=== PATIENT | male | born 1950 | race Caucasian/White ===

== ENCOUNTER → 2016-10-21 | Outpatient (REF) | payer MEDICARE ==
[2016-10-21 12:49] LABS: ANION GAP 9 MEQ/L (8-16); BLOOD UREA NITROGEN 17 MG/DL (7-18); CALCIUM LEVEL 9.4 MG/DL (8.8-10.2); CARBON DIOXIDE LEVEL 31 MEQ/L (21-32); CHLORIDE LEVEL 96 MEQ/L (98-107); CREATININE FOR GFR 0.99 MG/DL (0.70-1.30); GLOMERULAR FILTRATION RATE > 60.0 (>49); GLUCOSE, FASTING 240 MG/DL (80-110); POTASSIUM SERUM 3.7 MEQ/L (3.5-5.1); SODIUM LEVEL 136 MEQ/L (136-145)
== END ==
LOC: M SFHCPLAZ 08:24
PROVIDERS: ATTEND Internal Medicine
DX: E11.3293 Type 2 diabetes mellitus with mild nonproliferative diabetic retinopathy without macular edema, bilateral (principal); I10 Essential (primary) hypertension

== ENCOUNTER → 2017-01-09 | Outpatient (REF) | payer MEDICARE ==
[2017-01-09 12:09] LABS: ALBUMIN/GLOBULIN RATIO 1.18 (1.00-1.93); ALKALINE PHOSPHATASE 82 U/L (45-117); ALT/SGPT 31 U/L (12-78); ANION GAP 7 MEQ/L (8-16); AST/SGOT 12 U/L (15-37); BILIRUBIN,TOTAL 0.5 MG/DL (0.2-1.0); BLOOD UREA NITROGEN 18 MG/DL (7-18); CALCIUM LEVEL 9.5 MG/DL (8.8-10.2); CARBON DIOXIDE LEVEL 28 MEQ/L (21-32); CHLORIDE LEVEL 101 MEQ/L (98-107); CHOLESTEROL LEVEL 164 MG/DL (<200); CREATININE FOR GFR 1.08 MG/DL (0.70-1.30); GLOMERULAR FILTRATION RATE > 60.0 (>49); GLUCOSE, FASTING 164 MG/DL (80-110); MAGNESIUM LEVEL 1.9 MG/DL (1.8-2.4); POTASSIUM SERUM 3.8 MEQ/L (3.5-5.1); SODIUM LEVEL 136 MEQ/L (136-145); TOTAL PROTEIN 7.4 GM/DL (6.4-8.2); TRIGLYCERIDES LEVEL 75 MG/DL (<150)
== END ==
LOC: M SFHCPLAZ 08:04
PROVIDERS: ATTEND Internal Medicine
DX: I10 Essential (primary) hypertension (principal); Z79.899 Other long term (current) drug therapy

== ENCOUNTER → 2017-01-19 | Outpatient (CLI) | payer MEDICARE ==
--- NOTE | 2017-01-19 12:18 | REP ---
REASON FOR EXAM: History of MS. Comparison exam 12/13/2015. Gadolinium utilized: 22.6 mL of ProHance. The craniovertebral junction is within normal limits and unchanged. The subtle focal area of T2 hypersignal seen in the right half of the cervical cord at the C6 level seen on the prior exam is barely perceptible today and no new areas of T2 hypersignal have developed. There is barely perceptible possible Gadolinium enhancement seen in the cervical cord at the C6 level. Disc space height and degree of hydrational signal is again seen to be decreased throughout status quo. The facet joints are well aligned bilaterally and unchanged. The marrow signal is unchanged remaining within normal limits. At the C2-3 level, there is no significant change. There is no disc herniation, foraminal narrowing, or central canal stenosis. At the C3-4 level, there is a broad based annular bulge seen in conjunction with a posterior spondylotic bar. Degenerative facet and uncovertebral joint changes are again seen to be present at this level bilaterally and the factors in concert are causing unchanged mild left foraminal stenosis and unchanged mild to moderate right foraminal stenosis along with unchanged central canal stenosis. There is no evidence of an acute disc extrusion. At the C4-5 level, note is again made of a broad based annular bulge and a slight posterior spondylotic bar seen in conjunction with degenerative facet and uncovertebral joint changes bilaterally. These factors in concert are causing mild left foraminal stenosis status quo. There is no evidence of right foraminal stenosis. There is moderate unchanged central canal stenosis. There is no evidence of an acute disc extrusion. At the C5-6 level, there is a large broad based annular bulge seen in conjunction with an unchanged central disc protrusion which causes a concava anterior deformity of the anterior surface of the spinal cord. This is seen in conjunction with degenerative facet and uncovertebral joint changes bilaterally and a posterior spondylotic bar. The factors in concert are causing moderate right foraminal stenosis and mild left foraminal stenosis unchanged with severe central canal stenosis status quo. There is no evidence of an acute disc extrusion. At the C6-7 level, there is an asymmetric broad based annular bulge again seen in conjunction with degenerative facet and uncovertebral joint changes bilaterally. There is mild to moderate bilateral foraminal narrowing, right greater than left, and there is unchanged moderate to severe central canal stenosis due to the afore mentioned discogenic and chronic degenerative changes. There is no evidence of an acute disc extrusion. At the C7-T1 level, there is no change. There is an asymmetric broad based annular bulge seen in conjunction with degenerative facet and uncovertebral joint changes bilaterally. These factors in concert are seen along with right paracentral disc protrusion status quo which causes mild impingement upon the right half of the ventral subarachnoid space and mild unchanged central canal stenosis. There is no evidence of acute disc extrusion. IMPRESSION: 1. There is barely perceptible T2 hypersignal and enhancement seen in the cervical cord at the C6 level which I suspect has improved based on the T2 findings compared to the prior exam. No new areas of cord T2 hypersignal have developed. 2. Multilevel discogenic changes seen along with degenerative facet and uncovertebral joint changes giving rise to multilevel central canal stenosis and foraminal narrowing as described above. Signed by El Walton DO 01/19/2017 12:59 P
--- NOTE | 2017-01-19 12:28 | REP ---
REASON: Followup MS. COMPARISON: 12/13/2015. GADOLINIUM UTILIZED: 22 mL of ProHance. Once again, there are areas of scattered periventricular deep white matter FLAIR signal hyperintensity in a fashion unchanged from the prior exam. Scattered deep white matter subcortical T2 and particularly FLAIR hypersignal foci are again seen and in a fashion completely unchanged from the prior exam. No new abnormal deep white matter T2 or FLAIR signal hyperintensities have developed. No areas of abnormal enhancement have developed. There is no change in the appearance of the pericallosal deep white matter. There are no acute extra-axial fluid collections. There are no space occupying lesions. There is no change in the appearance of the posterior fossa. The orbital and petrous structures, cerebellopontine angles, and mastoid air cells are clear and unchanged. Note is again made of maxillary sinus and ethmoid bulla slight mucosal thickening without air fluid levels status quo. Sphenoid sinus mucosal thickening is again seen but this has improved from the prior exam. IMPRESSION: 1. Findings involving the deep white matter, as described above, appears stable and consistent with the patient's diagnosis of multiple sclerosis. 2. Paranasal sinus mucosal thickening as described above. Signed by El Walton DO 01/19/2017 12:59 P
== END ==
LOC: M RAD 09:24
PROVIDERS: ATTEND Psychiatry & Neurology Neurology
DX: G35 Multiple sclerosis (principal)
CPT/HCPCS: 70553; 72156; A9576

== ENCOUNTER → 2017-07-07 | Outpatient (REF) | payer MEDICARE ==
[2017-07-07 12:23] LABS: MEAN CORPUSCULAR HEMOGLOBIN 29.4 pg (27.0-33.0); MEAN CORPUSCULAR HGB CONC 34.7 g/dl (32.0-36.5); MEAN CORPUSCULAR VOLUME 84.7 fl (80.0-96.0); PLATELET COUNT, AUTOMATED 336 10^3/uL (150-450); WHITE BLOOD COUNT 10.1 10^3/uL (4.0-10.0)
[2017-07-07 12:50] LABS: MAGNESIUM LEVEL 2.1 MG/DL (1.8-2.4)
== END ==
LOC: M SFHCPLAZ 08:29
PROVIDERS: ATTEND Internal Medicine
DX: G35 Multiple sclerosis (principal); E11.3293 Type 2 diabetes mellitus with mild nonproliferative diabetic retinopathy without macular edema, bilateral; I10 Essential (primary) hypertension

== ENCOUNTER → 2017-12-10 | Outpatient (REF) | payer MEDICARE ==
[2017-12-10 12:22] LABS: ALBUMIN 4.1 GM/DL (3.2-5.2); ALBUMIN/GLOBULIN RATIO 1.24 (1.00-1.93); ALKALINE PHOSPHATASE 72 U/L (45-117); ALT/SGPT 45 U/L (12-78); ANION GAP 7 MEQ/L (8-16); AST/SGOT 25 U/L (7-37); BILIRUBIN,TOTAL 0.8 MG/DL (0.2-1.0); BLOOD UREA NITROGEN 14 MG/DL (7-18); CALCIUM LEVEL 9.4 MG/DL (8.8-10.2); CARBON DIOXIDE LEVEL 32 MEQ/L (21-32); CHLORIDE LEVEL 101 MEQ/L (98-107); CREATININE FOR GFR 1.08 MG/DL (0.70-1.30); GLOMERULAR FILTRATION RATE > 60.0 (>49); GLUCOSE, FASTING 192 MG/DL (70-100); POTASSIUM SERUM 4.1 MEQ/L (3.5-5.1); SODIUM LEVEL 140 MEQ/L (136-145); TOTAL PROTEIN 7.4 GM/DL (6.4-8.2)
[2017-12-10 12:51] LABS: ESTIMATED AVERAGE GLUCOSE 186 MG/DL (60-110); HEMOGLOBIN A1c 8.1 %
== END ==
LOC: M SFHCPLAZ 08:04
DX: I10 Essential (primary) hypertension (principal); E11.3293 Type 2 diabetes mellitus with mild nonproliferative diabetic retinopathy without macular edema, bilateral
CPT/HCPCS: 83735

== ENCOUNTER 2018-02-03 17:23 | Emergency (ER) | payer OTHER, MEDICARE ==
[2018-02-03] MEDS: NS 1,000 ML IV (19:09)
[2018-02-03] MEDS: MORPHINE 4 MG/ML 1ML VIAL/SYRINGE (J2270) IV (19:10)
[2018-02-03] MEDS: ONDANSETRON 4MG/2ML VIAL (J2405) IV (19:10)
[2018-02-03 19:27] LABS: HEMATOCRIT 36.6 % (42.0-52.0); HEMOGLOBIN 13.1 g/dl (13.5-17.5); MEAN CORPUSCULAR HEMOGLOBIN 30.6 pg (27.0-33.0); MEAN CORPUSCULAR HGB CONC 35.8 g/dl (32.0-36.5); MEAN CORPUSCULAR VOLUME 85.5 fl (80.0-96.0); PLATELET COUNT, AUTOMATED 287 10^3/uL (150-450); RED BLOOD COUNT 4.28 10^6/uL (4.30-6.10); RED CELL DISTRIBUTION WIDTH 12.7 % (11.5-14.5); WHITE BLOOD COUNT 26.7 10^3/uL (4.0-10.0)
[2018-02-03 19:37] LABS: INR 1.04; PROTHROMBIN TIME 13.7 SECONDS (12.1-14.4)
[2018-02-03 19:48] LABS: ANION GAP 10 MEQ/L (8-16); BLOOD UREA NITROGEN 17 MG/DL (7-18); CALCIUM LEVEL 9.3 MG/DL (8.8-10.2); CARBON DIOXIDE LEVEL 26 MEQ/L (21-32); CHLORIDE LEVEL 104 MEQ/L (98-107); CREATININE FOR GFR 1.22 MG/DL (0.70-1.30); GLOMERULAR FILTRATION RATE > 60.0 (>49); GLUCOSE, FASTING 252 MG/DL (70-100); POTASSIUM SERUM 3.6 MEQ/L (3.5-5.1); SODIUM LEVEL 140 MEQ/L (136-145)
[2018-02-03] MEDS ORDERED: ISOVUE-370 76% 100ML VIAL (Q9967) As Ordered (20:03)
[2018-02-03] MEDS: OXYCODONE/APAP 5MG/325MG(BULK FOR ED) 1 TABLET PO (21:09)
== END 2018-02-03 21:17 | disposition home or self-care (01) ==
LOC: M ED 17:23
DX: S22.32XA Fracture of one rib, left side, initial encounter for closed fracture (principal); T14.8XXA Other injury of unspecified body region, initial encounter; V49.49XA Driver injured in collision with other motor vehicles in traffic accident, initial encounter; Y92.410 Unspecified street and highway as the place of occurrence of the external cause; G35 Multiple sclerosis; Z88.0 Allergy status to penicillin
CPT/HCPCS: J2270

== ENCOUNTER → 2018-06-02 | Outpatient (REF) | payer MEDICARE ==
[2018-06-02 12:07] LABS: ALBUMIN 3.8 GM/DL (3.2-5.2); ALBUMIN/GLOBULIN RATIO 1.09 (1.00-1.93); ALKALINE PHOSPHATASE 84 U/L (45-117); ALT/SGPT 36 U/L (12-78); ANION GAP 10 MEQ/L (8-16); AST/SGOT 17 U/L (7-37); BILIRUBIN,TOTAL 0.5 MG/DL (0.2-1.0); BLOOD UREA NITROGEN 18 MG/DL (7-18); CALCIUM LEVEL 9.3 MG/DL (8.8-10.2); CARBON DIOXIDE LEVEL 28 MEQ/L (21-32); CHLORIDE LEVEL 101 MEQ/L (98-107); CHOLESTEROL LEVEL 165 MG/DL (<200); CHOLESTEROL RISK RATIO 2.323 (<5); CREATININE FOR GFR 1.14 MG/DL (0.70-1.30); GLOMERULAR FILTRATION RATE > 60.0 (>49); GLUCOSE, FASTING 167 MG/DL (70-100); HDL CHOLESTEROL 71 MG/DL (>40); LDL CHOLESTEROL 73 MG/DL (<100); MAGNESIUM LEVEL 1.7 MG/DL (1.8-2.4); NON-HDL-C 94 MG/DL; POTASSIUM SERUM 3.8 MEQ/L (3.5-5.1); PSA SCREENING 1.28 NG/ML (< 4.0); SODIUM LEVEL 139 MEQ/L (136-145); TOTAL 25(OH) VITAMIN D 56.4 NG/ML (30.0-100.0); TOTAL PROTEIN 7.3 GM/DL (6.4-8.2); TRIGLYCERIDES LEVEL 103 MG/DL (<150)
[2018-06-02 12:41] LABS: MAU/CREAT RATIO 33.5 MCG/MG (0.0-30.0)
[2018-06-02 13:07] LABS: ESTIMATED AVERAGE GLUCOSE 166 MG/DL (60-110); HEMOGLOBIN A1c 7.4 %
== END ==
LOC: M SFHCPLAZ 08:03
DX: E11.3293 Type 2 diabetes mellitus with mild nonproliferative diabetic retinopathy without macular edema, bilateral (principal); I10 Essential (primary) hypertension; R39.11 Hesitancy of micturition; G35 Multiple sclerosis
CPT/HCPCS: 83735

== ENCOUNTER → 2018-08-04 | Outpatient (REF) | payer MEDICARE ==
[~2018-08-04] MED LIST: PERC5TAB12 PO
[2018-08-04 15:53] LABS: BLOOD UREA NITROGEN 17 MG/DL (7-18); CALCIUM LEVEL 9.5 MG/DL (8.8-10.2); CARBON DIOXIDE LEVEL 27 MEQ/L (21-32); CHLORIDE LEVEL 98 MEQ/L (98-107); CREATININE FOR GFR 1.15 MG/DL (0.70-1.30); GLOMERULAR FILTRATION RATE > 60.0 (>49); GLUCOSE, FASTING 145 MG/DL (70-100); POTASSIUM SERUM 4.1 MEQ/L (3.5-5.1); SODIUM LEVEL 134 MEQ/L (136-145)
== END ==
LOC: M LABDRAWP 13:50
PROVIDERS: ATTEND Psychiatry & Neurology Neurology
DX: G35 Multiple sclerosis (principal)

== ENCOUNTER → 2018-08-10 | Outpatient (CLI) | payer MEDICARE ==
[~2018-08-10] MED LIST changes: +PROHANCE 279.3MG/ML 15ML VIAL (A9576) As Ordered ONE; +PROHANCE 279.3MG/ML 5ML VIAL (A9576) As Ordered ONE
--- NOTE | 2018-08-10 12:50 | REP ---
MR CERVICAL SPINE WITHOUT AND WITH CONTRAST: HISTORY: Multiple sclerosis. CONTRAST: ProHance 20 mL. COMPARISON: 01/19/2017. A disc bulge and small central disc protrusion with associated osteophyte formation are present at the C3-4 level. There is minimal spinal cord compression. Bilateral uncinate process hypertrophy is present. This produces moderate narrowing of the C3 neural foramina. A disc bugle with associated osteophyte formation is present at the C4-5 level. There is mild effacement of the thecal sac without spinal cord compression. Uncinate process hypertrophy is present on the left. This produces mild narrowing of the left C4 neural foramen. The right C4 neural foramen is patent. A disc bulge and small central disc protrusion with associated osteophyte formation are present at the C5-6 level. There is minimal spinal cord compression. Bilateral uncinate process hypertrophy is present. This produces moderate and mild narrowing of the right and left C5 neural foramina respectively. A disc bulge with associated osteophyte formation is present at the C6-7 level. There is moderate effacement of the thecal sac without spinal cord compression. Bilateral uncinate process hypertrophy is present. This produces moderate narrowing of the C6 neural foramina. There is no other disc bulge or herniation. The remaining neural foramina are patent. Two small focal areas of increased signal intensity on T2-weighted images are present in the spinal cord at the C6 and C7-T1 levels. The spinal cord is normal in size. There is no enhancement with contrast. The C5-6 and C6-7 intervertebral discs are decreased in height consistent with disc degeneration. Normal signal intensity is present in the cervical vertebral bodies. IMPRESSION: 1. There is cervical spondylosis at the C3-4 through C6-7 levels most significant at the C3-4 and C5-6 levels where there is minimal spinal cord compression. 2. There are two small focal areas of abnormal signal intensity in the spinal cord at the C6 and C7-T1 levels unchanged compared to the previous study. This is consistent with demyelinating disease. Electronically Signed by David Lewis MD 08/10/2018 12:56 P
--- NOTE | 2018-08-10 14:55 | REP ---
MR BRAIN WITHOUT AND WITH CONTRAST: HISTORY: Multiple sclerosis. CONTRAST: ProHance 20 mL. COMPARISON: 01/19/2017 Scattered punctate areas of increased signal intensity on T2-weighted images are present in the periventricular and subcortical white matter. An additional area of increased signal intensity is present in the splenium of the corpus callosum. These are unchanged compared to the previous study. There are no new areas of abnormal signal intensity. There is no intraparenchymal hemorrhage, infarct, mass or midline shift. There is no abnormal enhancement. The ventricular system and cortical sulci are dilated consistent with mild volume loss. There is no extracerebral collection. Mucosal thickening is present in the ethmoid, maxillary and sphenoid sinuses. IMPRESSION: There are scattered punctate areas of increased signal intensity in the periventricular and subcortical white matter as well as the corpus callosum that are unchanged compared to the previous study. Electronically Signed by David Lewis MD 08/10/2018 03:03 P
--- NOTE | 2018-08-10 15:34 | REP ---
MR THORACIC SPINE WITHOUT AND WITH CONTRAST: HISTORY: Multiple sclerosis. CONTRAST: ProHance 20 mL. COMPARISON: 06/07/2014 A small left paracentral disc protrusion is present at the T1-2 level. There is minimal effacement of the thecal sac without spinal cord compression. The T1 neural foramina are patent. A small right paracentral disc protrusion is present at the T6-7 level. There is minimal effacement of the thecal sac without spinal cord compression. The T6 neural foraminal are patent. A small central disc protrusion is present at the T7-8 level. There is minimal effacement of the thecal sac without spinal cord compression. The T7 neural foramina are patent. A small central disc protrusion is present at the T 8-9 level. There is minimal effacement of the thecal sac without spinal cord compression. The T8 neural foramina are patent. There is no other disc bulge or herniation. The remaining neural foramina are patent. A small 2 mm syrinx is present in the spinal cord at the T4-5 level. The spinal cord is normal in size. There is no abnormal enhancement. There is loss of height of several mid and lower thoracic intervertebral discs. Increased signal intensity on T2 weighted images is present in the endplates of the T3 through T12 vertebral bodies. This represents degenerative change. IMPRESSION:1. Small disc protrusions at the T1-2, and T6-7 through T8-9 levels without spinal cord compression. The previously noted small disc protrusion at the T2-3 level is not seen. 2. Small 2 mm syrinx at the T4-5 level unchanged compared to the previous study. Electronically Signed by David Lewis MD 08/10/2018 03:38 P
== END ==
LOC: M RAD 08:36
PROVIDERS: ATTEND Psychiatry & Neurology Neurology
DX: G35 Multiple sclerosis (principal); M51.34 Other intervertebral disc degeneration, thoracic region; G95.0 Syringomyelia and syringobulbia; M50.221 Other cervical disc displacement at C4-C5 level; M50.222 Other cervical disc displacement at C5-C6 level; M50.223 Other cervical disc displacement at C6-C7 level; M47.892 Other spondylosis, cervical region
CPT/HCPCS: 70553; 72156; 72157; A9576

== ENCOUNTER → 2018-12-07 | Outpatient (REF) | payer MEDICARE ==
[~2018-12-07] MED LIST changes: -PROHANCE 279.3MG/ML 15ML VIAL (A9576) As Ordered ONE; -PROHANCE 279.3MG/ML 5ML VIAL (A9576) As Ordered ONE
[2018-12-07 12:06] LABS: ALBUMIN 4.2 GM/DL (3.2-5.2); BILIRUBIN,TOTAL 0.5 MG/DL (0.2-1.0); CALCIUM LEVEL 9.5 MG/DL (8.8-10.2); CREATININE FOR GFR 1.4 MG/DL (0.70-1.30); GLOMERULAR FILTRATION RATE 53.8 (>49); MAGNESIUM LEVEL 2.3 MG/DL (1.8-2.4); POTASSIUM SERUM 4.2 MEQ/L (3.5-5.1); TOTAL PROTEIN 7.9 GM/DL (6.4-8.2)
[2018-12-07 14:49] LABS: HEMOGLOBIN A1c 7.1 %
[2018-12-07 16:42] LABS: MALB URINE SIEMENS 21.3 MG/L; MAU/CREAT RATIO 13.7 MCG/MG (0.0-30.0)
== END ==
LOC: M SFHCPLAZ 10:05
PROVIDERS: ATTEND Internal Medicine
DX: I10 Essential (primary) hypertension (principal); E11.3293 Type 2 diabetes mellitus with mild nonproliferative diabetic retinopathy without macular edema, bilateral

== ENCOUNTER → 2019-02-21 | Outpatient (REF) | payer OTHER ==
[2019-02-21 17:05] LABS: BASO # 0.1 10^3/uL (0.0-0.2); BASO % 0.6 % (0.0-1.0); EOS # 0.4 10^3/uL (0.0-0.50); EOS % 2.9 % (0.0-3.0); HEMATOCRIT 42.2 % (42.0-52.0); HEMOGLOBIN 14.6 g/dl (13.5-17.5); LYMPH # 3.3 10^3/uL (1.5-4.5); LYMPH % 22.9 % (24.0-44.0); MEAN CORPUSCULAR HEMOGLOBIN 29.4 pg (27.0-33.0); MEAN CORPUSCULAR HGB CONC 34.6 g/dl (32.0-36.5); MEAN CORPUSCULAR VOLUME 85.1 fl (80.0-96.0); MONO # 1.3 10^3/uL (0.0-0.8); MONO % 8.8 % (0.0-5.0); NEUTROPHILS # 9.2 10^3/uL (1.8-7.7); NEUTROPHILS % 64.3 % (36.0-66.0); PLATELET COUNT, AUTOMATED 346 10^3/uL (150-450); RED BLOOD COUNT 4.96 10^6/uL (4.30-6.10); WHITE BLOOD COUNT 14.3 10^3/uL (4.0-10.0)
[2019-02-21 17:16] LABS: CALCIUM LEVEL 10.4 MG/DL (8.8-10.2); CREATININE FOR GFR 1.33 MG/DL (0.70-1.30); GLOMERULAR FILTRATION RATE 56.9 (>49); POTASSIUM SERUM 4.1 MEQ/L (3.5-5.1)
== END ==
LOC: M SFHCPLAZ 14:46
PROVIDERS: ATTEND Family Medicine
DX: D72.829 Elevated white blood cell count, unspecified (principal); I10 Essential (primary) hypertension

== ENCOUNTER → 2019-02-23 | Outpatient (REF) | payer MEDICARE, OTHER ==
[2019-02-23 11:18] LABS: BASO # 0.1 10^3/uL (0.0-0.2); BASO % 0.5 % (0.0-1.0); EOS # 0.3 10^3/uL (0.0-0.50); EOS % 2.3 % (0.0-3.0); HEMATOCRIT 42.1 % (42.0-52.0); HEMOGLOBIN 14.3 g/dl (13.5-17.5); LYMPH # 2.6 10^3/uL (1.5-4.5); LYMPH % 23.1 % (24.0-44.0); MEAN CORPUSCULAR HEMOGLOBIN 29.5 pg (27.0-33.0); MONO # 0.8 10^3/uL (0.0-0.8); MONO % 7.2 % (0.0-5.0); NEUTROPHILS # 7.6 10^3/uL (1.8-7.7); NEUTROPHILS % 66.6 % (36.0-66.0); PLATELET COUNT, AUTOMATED 324 10^3/uL (150-450); RED BLOOD COUNT 4.84 10^6/uL (4.30-6.10); WHITE BLOOD COUNT 11.5 10^3/uL (4.0-10.0)
[2019-02-23 11:35] LABS: CALCIUM LEVEL 9.3 MG/DL (8.8-10.2); CREATININE FOR GFR 1.32 MG/DL (0.70-1.30); GLOMERULAR FILTRATION RATE 57.4 (>49); POTASSIUM SERUM 3.9 MEQ/L (3.5-5.1)
== END ==
LOC: M SFHCPLAZ 08:35
PROVIDERS: ATTEND Family Medicine
DX: D72.829 Elevated white blood cell count, unspecified (principal)

== ENCOUNTER → 2019-06-08 | Outpatient (REF) | payer MEDICARE ==
[2019-06-08 11:36] LABS: HEMATOCRIT 41.7 % (42.0-52.0); HEMOGLOBIN 14.1 g/dl (13.5-17.5); MEAN CORPUSCULAR HEMOGLOBIN 29.1 pg (27.0-33.0); MEAN CORPUSCULAR HGB CONC 33.8 g/dl (32.0-36.5); MEAN CORPUSCULAR VOLUME 86.2 fl (80.0-96.0); PLATELET COUNT, AUTOMATED 313 10^3/uL (150-450); RED BLOOD COUNT 4.84 10^6/uL (4.30-6.10); WHITE BLOOD COUNT 8.9 10^3/uL (4.0-10.0)
[2019-06-08 12:02] LABS: ALBUMIN 4.1 GM/DL (3.2-5.2); CALCIUM LEVEL 9.4 MG/DL (8.8-10.2); CHOLESTEROL RISK RATIO 2.196 (<5); CREATININE FOR GFR 1.3 MG/DL (0.70-1.30); GLOMERULAR FILTRATION RATE 58.4 (>49); MAGNESIUM LEVEL 1.8 MG/DL (1.8-2.4); THYROID STIMULATING HORMONE 1.11 uIU/ML (0.358-3.740); TOTAL PROTEIN 7.7 GM/DL (6.4-8.2)
[2019-06-08 12:42] LABS: HEMOGLOBIN A1c 7.1 %
== END ==
LOC: M SFHCPLAZ 09:52
PROVIDERS: ATTEND Internal Medicine
DX: G35 Multiple sclerosis (principal); I10 Essential (primary) hypertension; E11.3293 Type 2 diabetes mellitus with mild nonproliferative diabetic retinopathy without macular edema, bilateral; E66.01 Morbid (severe) obesity due to excess calories

== ENCOUNTER → 2019-06-08 | Outpatient (REF) | payer MEDICARE ==
[2019-06-08 14:17] LABS: BASO # 0.1 10^3/uL (0.0-0.2); BASO % 0.9 % (0.0-1.0); EOS # 0.3 10^3/uL (0.0-0.5); EOS % 3.3 % (0.0-3.0); HEMATOCRIT 43.1 % (42.0-52.0); HEMOGLOBIN 14.3 g/dl (13.5-17.5); LYMPH # 2.3 10^3/uL (1.5-5.0); LYMPH % 26.4 % (24.0-44.0); MEAN CORPUSCULAR HEMOGLOBIN 29.3 pg (27.0-33.0); MEAN CORPUSCULAR HGB CONC 33.2 g/dl (32.0-36.5); MEAN CORPUSCULAR VOLUME 88.3 fl (80.0-96.0); MONO # 0.7 10^3/uL (0.0-0.8); MONO % 8.5 % (0.0-5.0); NEUTROPHILS # 5.2 10^3/uL (1.5-8.5); NEUTROPHILS % 60.7 % (36.0-66.0); PLATELET COUNT, AUTOMATED 320 10^3/uL (150-450); RED BLOOD COUNT 4.88 10^6/uL (4.30-6.10); WHITE BLOOD COUNT 8.6 10^3/uL (4.0-10.0)
[2019-06-08 14:26] LABS: ALBUMIN 4.1 GM/DL (3.2-5.2); ALT/SGPT 33 U/L (12-78); BILIRUBIN,TOTAL 0.9 MG/DL (0.2-1.0); BLOOD UREA NITROGEN 21 MG/DL (7-18); CARBON DIOXIDE LEVEL 30 MEQ/L (21-32); CHLORIDE LEVEL 102 MEQ/L (98-107); CREATININE FOR GFR 1.27 MG/DL (0.70-1.30); GLUCOSE, FASTING 131 MG/DL (70-100); POTASSIUM SERUM 4.1 MEQ/L (3.5-5.1); RHEUMATOID FACTOR QUANT < 10.0 IU/ML (<15.0); SODIUM LEVEL 138 MEQ/L (136-145); TOTAL PROTEIN 7.9 GM/DL (6.4-8.2)
[2019-06-08 14:27] LABS: HEPATITIS B SURFACE ANTIBODY NEGATIVE (POSITIVE); TOTAL 25(OH) VITAMIN D 65.2 NG/ML (30.0-100.0)
[2019-06-08 14:28] LABS: VITAMIN B12 LEVEL 567 PG/ML
[2019-06-08 14:29] LABS: FOLATE > 24.0 NG/ML
[2019-06-08 15:06] LABS: ERYTHROCYTE SEDIMENTATION RATE 28 mm/hr (0-20); HEPATITIS C VIRUS ABY INDEX 0.1 INDEX (<0.8)
[2019-06-13 14:34] LABS: ANGIOTENSIN 1 CONVERTING ENZYM 29 U/L (14-82); ANTI DS-DNA AB Negative (Negative); ANTINUCLEAR ANTIBODIES DIRECT Negative (Negative); HERPES ZOSTER, VARICELLA IgG 1426 index (Immune >165); Lyme Disease IgG/IgM Antibodie <0.91 ISR (0.00-0.90); Lyme Disease IgM Ab Quantitati <0.80 index (0.00-0.79); SJOGREN'S ANTI SS-A <0.2 AI (0.0-0.9); SJOGREN'S ANTI SS-B <0.2 AI (0.0-0.9); VITAMIN B1 LEVEL WHOLE BLOOD 131.3 nmol/L (66.5-200.0); VITAMIN B6,PYRIDOXAL PHOSPHATE 22.9 ug/L (5.3-46.7); VITAMIN E(ALPHA TOCOPHEROL) 11.6 mg/L (9.0-29.0)
[2019-06-14 11:17] LABS: DRVV SCREEN 47.8 SEC
[2019-06-14 11:19] LABS: PTT LUPUS TYPE ANTICOAG SCREEN 1.2 (0-1.2)
[2019-06-14 11:41] LABS: DRVV CONFIRM 37.6 SEC
[2019-06-14 11:48] LABS: NORMALIZED RATIO 1.2 (0.00-1.20)
== END ==
LOC: M LABDRAWP 10:07
PROVIDERS: ATTEND Psychiatry & Neurology Neurology
DX: G35 Multiple sclerosis (principal); I10 Essential (primary) hypertension; E11.3293 Type 2 diabetes mellitus with mild nonproliferative diabetic retinopathy without macular edema, bilateral; E66.01 Morbid (severe) obesity due to excess calories

== ENCOUNTER → 2019-12-20 | Outpatient (REF) | payer MEDICARE ==
[2019-12-20 12:35] LABS: BILIRUBIN,TOTAL 0.8 MG/DL (0.2-1.0); CALCIUM LEVEL 9.2 MG/DL (8.8-10.2); CREATININE FOR GFR 1.29 MG/DL (0.70-1.30); MAGNESIUM LEVEL 1.8 MG/DL (1.8-2.4); POTASSIUM SERUM 4.1 MEQ/L (3.5-5.1); TOTAL PROTEIN 7.5 GM/DL (6.4-8.2)
[2019-12-20 13:27] LABS: MALB URINE SIEMENS 86.6 MG/L
[2019-12-20 20:17] LABS: HEMOGLOBIN A1c 8.2 %
== END ==
LOC: M PLALAB 09:54
PROVIDERS: ATTEND Internal Medicine
DX: I10 Essential (primary) hypertension (principal); E11.3293 Type 2 diabetes mellitus with mild nonproliferative diabetic retinopathy without macular edema, bilateral

== ENCOUNTER → 2020-06-19 | Outpatient (REF) | payer MEDICARE ==
[2020-06-19 13:23] LABS: HEMATOCRIT 40.5 % (42.0-52.0); HEMOGLOBIN 13.6 g/dl (13.5-17.5); MEAN CORPUSCULAR HEMOGLOBIN 29.2 pg (27.0-33.0); MEAN CORPUSCULAR HGB CONC 33.6 g/dl (32.0-36.5); MEAN CORPUSCULAR VOLUME 86.9 fl (80.0-96.0); PLATELET COUNT, AUTOMATED 325 10^3/uL (150-450); RED BLOOD COUNT 4.66 10^6/uL (4.30-6.10); WHITE BLOOD COUNT 7.6 10^3/uL (4.0-10.0)
[2020-06-19 13:42] LABS: HEMOGLOBIN A1c 7.3 %
[2020-06-19 13:58] LABS: BILIRUBIN,TOTAL 0.5 MG/DL (0.2-1.0); CALCIUM LEVEL 9.9 MG/DL (8.8-10.2); CHOLESTEROL RISK RATIO 2.661 (<5); CREATININE FOR GFR 1.28 MG/DL (0.70-1.30); GLOMERULAR FILTRATION RATE 59.3 (>49); POTASSIUM SERUM 4.5 MEQ/L (3.5-5.1); TOTAL PROTEIN 7.5 GM/DL (6.4-8.2)
[2020-06-19 14:03] LABS: MALB URINE SIEMENS 53.6 MG/L; MAU/CREAT RATIO 35.9 MCG/MG (0.0-30.0)
== END ==
LOC: M PLALAB 09:50
PROVIDERS: ATTEND Internal Medicine
DX: G35 Multiple sclerosis (principal); I10 Essential (primary) hypertension; E11.3293 Type 2 diabetes mellitus with mild nonproliferative diabetic retinopathy without macular edema, bilateral; Z12.5 Encounter for screening for malignant neoplasm of prostate
CPT/HCPCS: 36415; 80053; 80061; 82043; 83036; 83735; 85027; G0103

== ENCOUNTER → 2021-01-01 | Outpatient (REF) | payer MEDICARE ==
[2021-01-01 14:17] LABS: BASO # 0.1 10^3/uL (0.0-0.2); BASO % 0.7 % (0.0-1.0); EOS # 0.2 10^3/uL (0.0-0.5); EOS % 1.9 % (0.0-3.0); HEMATOCRIT 42.4 % (42.0-52.0); HEMOGLOBIN 14.6 g/dl (13.5-17.5); LYMPH # 2.8 10^3/uL (1.5-5.0); LYMPH % 24.4 % (24.0-44.0); MEAN CORPUSCULAR HEMOGLOBIN 29.1 pg (27.0-33.0); MEAN CORPUSCULAR HGB CONC 34.4 g/dl (32.0-36.5); MEAN CORPUSCULAR VOLUME 84.6 fl (80.0-96.0); MONO # 1.2 10^3/uL (0.0-0.8); NEUTROPHILS # 7.2 10^3/uL (1.5-8.5); NEUTROPHILS % 62.7 % (36.0-66.0); PLATELET COUNT, AUTOMATED 330 10^3/uL (150-450); RED BLOOD COUNT 5.01 10^6/uL (4.30-6.10); WHITE BLOOD COUNT 11.6 10^3/uL (4.0-10.0)
[2021-01-01 14:49] LABS: ALT/SGPT 27 U/L (12-78); BILIRUBIN,TOTAL 0.8 MG/DL (0.2-1.0); BLOOD UREA NITROGEN 22 MG/DL (7-18); CALCIUM LEVEL 10.2 MG/DL (8.8-10.2); CARBON DIOXIDE LEVEL 27 MEQ/L (21-32); CHLORIDE LEVEL 100 MEQ/L (98-107); CHOLESTEROL LEVEL 170 MG/DL (<200); CHOLESTEROL RISK RATIO 2.328 (<5); CREATININE FOR GFR 1.23 MG/DL (0.70-1.30); GLOMERULAR FILTRATION RATE > 60.0 (>49); GLUCOSE, FASTING 157 MG/DL (70-100); HDL CHOLESTEROL 73 MG/DL (>40); LDL CHOLESTEROL 76 MG/DL (<100); MAGNESIUM LEVEL 1.9 MG/DL (1.8-2.4); NON-HDL-C 97 MG/DL; POTASSIUM SERUM 3.9 MEQ/L (3.5-5.1); SODIUM LEVEL 137 MEQ/L (136-145); TOTAL PROTEIN 7.8 GM/DL (6.4-8.2); TRIGLYCERIDES LEVEL 104 MG/DL (<150)
[2021-01-01 16:17] LABS: HEMOGLOBIN A1c 8.1 %
[2021-01-01 18:22] LABS: MAU/CREAT RATIO 66.2 MCG/MG (0.0-30.0)
[2021-01-08 09:40] LABS: TOTAL 25(OH) VITAMIN D 59.9 NG/ML (30.0-100.0)
== END ==
LOC: M SFHCPLAZ 12:42
PROVIDERS: ATTEND Internal Medicine
DX: I10 Essential (primary) hypertension (principal); E11.3293 Type 2 diabetes mellitus with mild nonproliferative diabetic retinopathy without macular edema, bilateral; G35 Multiple sclerosis; Z79.899 Other long term (current) drug therapy

== ENCOUNTER → 2021-04-29 | Outpatient (CLI) | payer MEDICARE ==
[2021-04-29 14:25] LABS: CREATININE FOR GFR 1.37 MG/DL (0.70-1.30); GLOMERULAR FILTRATION RATE 54.7 (>42); POTASSIUM SERUM 4.4 MEQ/L (3.5-5.1)
== END ==
LOC: M PLALAB 11:12
PROVIDERS: ATTEND Internal Medicine
DX: R60.0 Localized edema (principal)

== ENCOUNTER → 2021-04-29 | Outpatient (REF) | payer MEDICARE | LOC: M SFHCPLAZ 10:56 | PROVIDERS: ATTEND Internal Medicine | DX: R60.0 Localized edema (principal) ==

== ENCOUNTER → 2021-05-06 | Outpatient (CLI) | payer MEDICARE ==
[2021-05-06 14:07] LABS: BASO # 0.1 10^3/uL (0.0-0.2); BASO % 0.6 % (0.0-1.0); EOS # 0.3 10^3/uL (0.0-0.5); EOS % 2.6 % (0.0-3.0); LYMPH # 2.6 10^3/uL (1.5-5.0); LYMPH % 24.8 % (24.0-44.0); MEAN CORPUSCULAR HEMOGLOBIN 29.6 pg (27.0-33.0); MEAN CORPUSCULAR HGB CONC 34.1 g/dl (32.0-36.5); MONO % 9.6 % (2.0-8.0); NEUTROPHILS # 6.6 10^3/uL (1.5-8.5); PLATELET COUNT, AUTOMATED 348 10^3/uL (150-450); RED BLOOD COUNT 5.06 10^6/uL (4.30-6.10); WHITE BLOOD COUNT 10.6 10^3/uL (4.0-10.0)
[2021-05-06 14:35] LABS: ALBUMIN 4.2 GM/DL (3.2-5.2); BILIRUBIN,TOTAL 0.8 MG/DL (0.2-1.0); CALCIUM LEVEL 10.2 MG/DL (8.8-10.2); CHOLESTEROL RISK RATIO 2.28 (<5); CREATININE FOR GFR 1.35 MG/DL (0.70-1.30); GLOMERULAR FILTRATION RATE 55.6 (>42); MAGNESIUM LEVEL 1.8 MG/DL (1.8-2.4); POTASSIUM SERUM 4.5 MEQ/L (3.5-5.1); TOTAL PROTEIN 7.9 GM/DL (6.4-8.2)
[2021-05-06 14:42] LABS: TOTAL 25(OH) VITAMIN D 54.8 NG/ML (30.0-100.0)
[2021-05-06 15:08] LABS: MALB URINE SIEMENS 74.2 MG/L; MAU/CREAT RATIO 36.9 MCG/MG (0.0-30.0)
== END ==
LOC: M PLALAB 09:27
PROVIDERS: ATTEND Internal Medicine
DX: I10 Essential (primary) hypertension (principal); G35 Multiple sclerosis; E11.3293 Type 2 diabetes mellitus with mild nonproliferative diabetic retinopathy without macular edema, bilateral; Z79.899 Other long term (current) drug therapy

== ENCOUNTER → 2021-06-04 | Outpatient (CLI) | payer MEDICARE ==
[2021-06-04 14:58] LABS: CREATININE FOR GFR 1.47 MG/DL (0.70-1.30); GLOMERULAR FILTRATION RATE 50.4 (>42); POTASSIUM SERUM 4.8 MEQ/L (3.5-5.1)
[2021-06-04 14:59] LABS: CALCIUM LEVEL 9.9 MG/DL (8.8-10.2); MAGNESIUM LEVEL 2.2 MG/DL (1.8-2.4)
== END ==
LOC: M PLALAB 09:11
PROVIDERS: ATTEND Internal Medicine
DX: R60.0 Localized edema (principal)

== ENCOUNTER → 2021-07-29 | Outpatient (REF) | payer MEDICARE ==
[2021-07-29 17:13] LABS: APPEARANCE, URINE TURBID (CLEAR); BACTERIA, URINE AUTO 3+ (NEGATIVE); BILIRUBIN, URINE AUTO NEGATIVE (NEGATIVE); BLOOD, URINE BLOOD 1+ (NEGATIVE); COLOR, URINE YELLOW (YELLOW); GLUCOSE, URINE (UA) AUTO 1+ mg/dL (NEGATIVE); KETONE, URINE AUTO TRACE mg/dL (NEGATIVE); LEUKOCYTE ESTERASE, URINE AUTO 2+ (NEGATIVE); NITRITE, URINE AUTO NEGATIVE (NEGATIVE); PROTEIN, URINE AUTO 2+ mg/dL (NEGATIVE); RBC, URINE AUTO 0 /HPF (0-3); SPECIFIC GRAVITY URINE AUTO 1.009 (1.002-1.035); SQUAMOUS EPITHELIAL CELL UR AU 0 /HPF (0-6); UROBILINOGEN, URINE AUTO 0.2 mg/dL (0.0-2.0); WBC, URINE AUTO TNTC /HPF (0-3)
== END ==
LOC: M SFHCPLAZ 16:23
PROVIDERS: ATTEND Internal Medicine
DX: R30.0 Dysuria (principal)

== ENCOUNTER → 2021-10-15 | Outpatient (REF) | payer MEDICARE ==
[2021-10-15 13:09] LABS: HEMOGLOBIN A1c 7.5 %
[2021-10-15 13:19] LABS: ALBUMIN 4.1 GM/DL (3.2-5.2); BILIRUBIN,TOTAL 0.6 MG/DL (0.2-1.0); CHOLESTEROL RISK RATIO 2.585 (<5); CREATININE FOR GFR 1.3 MG/DL (0.70-1.30); GLOMERULAR FILTRATION RATE 58.1 (>42); MAGNESIUM LEVEL 1.9 MG/DL (1.8-2.4); POTASSIUM SERUM 3.9 MEQ/L (3.5-5.1); TOTAL PROTEIN 7.7 GM/DL (6.4-8.2)
== END ==
LOC: M SFHCADAM 09:32
PROVIDERS: ATTEND Internal Medicine
DX: I10 Essential (primary) hypertension (principal); E11.3293 Type 2 diabetes mellitus with mild nonproliferative diabetic retinopathy without macular edema, bilateral

== ENCOUNTER → 2021-12-06 | Outpatient (CLI) | payer MEDICARE ==
[2021-12-06 16:31] LABS: ALBUMIN 3.5 GM/DL (3.2-5.2); CALCIUM LEVEL 9.5 MG/DL (8.8-10.2); CREATININE FOR GFR 1.31 MG/DL (0.70-1.30); GLOMERULAR FILTRATION RATE 57.6 (>42); PHOSPHORUS LEVEL 3.3 MG/DL (2.5-4.9); POTASSIUM SERUM 3.9 MEQ/L (3.5-5.1)
== END ==
LOC: M WUC 11:00
PROVIDERS: ATTEND Physician Assistant
DX: R33.9 Retention of urine, unspecified (principal)

== ENCOUNTER → 2021-12-16 | Outpatient (CLI) | payer MEDICARE ==
[2021-12-16 11:12] LABS: CALCIUM LEVEL 9.6 MG/DL (8.8-10.2); CREATININE FOR GFR 1.33 MG/DL (0.70-1.30); GLOMERULAR FILTRATION RATE 56.6 (>42); MAGNESIUM LEVEL 1.9 MG/DL (1.8-2.4); POTASSIUM SERUM 4.6 MEQ/L (3.5-5.1)
== END ==
LOC: M WUC 08:45
PROVIDERS: ATTEND Internal Medicine
DX: E11.3293 Type 2 diabetes mellitus with mild nonproliferative diabetic retinopathy without macular edema, bilateral (principal)

== ENCOUNTER → 2022-02-26 | Outpatient (CLI) | payer MEDICARE ==
[2022-02-26 12:46] LABS: BASO # 0.1 10^3/uL (0.0-0.2); BASO % 0.8 % (0.0-1.0); EOS # 0.2 10^3/uL (0.0-0.5); EOS % 1.8 % (0.0-3.0); HEMOGLOBIN 14.1 g/dl (13.5-17.5); LYMPH % 23.1 % (24.0-44.0); MEAN CORPUSCULAR HGB CONC 33.6 g/dl (32.0-36.5); MEAN CORPUSCULAR VOLUME 86.4 fl (80.0-96.0); MONO # 1.1 10^3/uL (0.0-0.8); MONO % 8.5 % (2.0-8.0); NEUTROPHILS # 8.4 10^3/uL (1.5-8.5); NEUTROPHILS % 65.3 % (36.0-66.0); PLATELET COUNT, AUTOMATED 362 10^3/uL (150-450); RED BLOOD COUNT 4.86 10^6/uL (4.30-6.10); WHITE BLOOD COUNT 12.9 10^3/uL (4.0-10.0)
[2022-02-26 13:33] LABS: ALBUMIN 4.1 GM/DL (3.2-5.2); BILIRUBIN,TOTAL 0.7 MG/DL (0.2-1.0); CREATININE FOR GFR 1.41 MG/DL (0.70-1.30); GLOMERULAR FILTRATION RATE 52.7 (>42); POTASSIUM SERUM 3.9 MEQ/L (3.5-5.1); TOTAL PROTEIN 8.4 GM/DL (6.4-8.2)
== END ==
LOC: M WUC 10:12
PROVIDERS: ATTEND Psychiatry & Neurology Neurology
DX: G35 Multiple sclerosis (principal)

== ENCOUNTER → 2022-10-22 | Outpatient (REF) | payer MEDICARE ==
[2022-10-23 17:55] LABS: CREATININE,RANDOM URINE 71.4 MG/DL
== END ==
LOC: M LAB REF 16:57
PROVIDERS: ATTEND Internal Medicine Nephrology
DX: N18.31 Chronic kidney disease, stage 3a (principal)

== ENCOUNTER → 2022-12-19 | Outpatient (REF) | payer MEDICARE ==
[2022-12-19 18:14] LABS: CREATININE, URINE 43.6 MG/DL; MAU/CREAT RATIO 25.2 MCG/MG (0.0-30.0)
[2022-12-19 18:20] LABS: HEMOGLOBIN A1c 7.5 % (4.0-6.0)
== END ==
LOC: M LAB REF 16:47
PROVIDERS: ATTEND Family Medicine
DX: I10 Essential (primary) hypertension (principal); E11.9 Type 2 diabetes mellitus without complications

== ENCOUNTER → 2023-05-07 | Outpatient (REF) | payer MEDICARE ==
[2023-05-07 18:46] LABS: CREATININE, URINE 59.8 MG/DL; MAU/CREAT RATIO 28.4 MCG/MG (0.0-30.0)
[2023-05-07 18:53] LABS: BASO # 0.1 10^3/uL (0.0-0.2); BASO % 0.6 % (0.0-1.0); EOS # 0.2 10^3/uL (0.0-0.5); EOS % 2.1 % (0.0-3.0); HEMATOCRIT 44.7 % (42.0-52.0); HEMOGLOBIN 15.1 g/dl (13.5-17.5); LYMPH % 26.8 % (24.0-44.0); MEAN CORPUSCULAR HEMOGLOBIN 29.5 pg (27.0-33.0); MEAN CORPUSCULAR HGB CONC 33.8 g/dl (32.0-36.5); MEAN CORPUSCULAR VOLUME 87.5 fl (80.0-96.0); MONO # 0.9 10^3/uL (0.0-0.8); MONO % 8.3 % (2.0-8.0); NEUTROPHILS # 6.9 10^3/uL (1.5-8.5); NEUTROPHILS % 61.7 % (36.0-66.0); PLATELET COUNT, AUTOMATED 405 10^3/uL (150-450); RED BLOOD COUNT 5.11 10^6/uL (4.30-6.10); WHITE BLOOD COUNT 11.3 10^3/uL (4.0-10.0)
[2023-05-07 18:54] LABS: HEMOGLOBIN A1c 8.6 % (4.0-6.0)
[2023-05-07 18:55] LABS: ALBUMIN 4.2 G/DL (3.2-5.2); ALKALINE PHOSPHATASE 96 U/L (46-116); ALT/SGPT 23 U/L (7.0-40); AST/SGOT 19 U/L (<34); BILIRUBIN,TOTAL 0.7 MG/DL (0.3-1.2); BLOOD UREA NITROGEN 30 MG/DL (9-23); CALCIUM LEVEL 10.2 MG/DL (8.3-10.6); CARBON DIOXIDE LEVEL 30 MMOL/L (20-31); CHLORIDE LEVEL 94 MMOL/L (98-107); CHOLESTEROL LEVEL 202 MG/DL (<200); CHOLESTEROL RISK RATIO 2.48 (<5); CREATININE FOR GFR 1.14 MG/DL (0.70-1.30); GLOMERULAR FILTRATION RATE > 60.0 (>42); GLUCOSE, FASTING 169 MG/DL (74-106); HDL CHOLESTEROL 81.2 MG/DL (>40); LDL CHOLESTEROL 91.4 MG/DL (<100); NON-HDL-C 120.8 MG/DL; SODIUM LEVEL 134 MMOL/L (136-145); TOTAL PROTEIN 7.6 G/DL (5.7-8.2); TRIGLYCERIDES LEVEL 147 MG/DL (<150)
== END ==
LOC: M LAB REF 17:21
PROVIDERS: ATTEND Family Medicine
DX: E11.22 Type 2 diabetes mellitus with diabetic chronic kidney disease (principal); N18.30 Chronic kidney disease, stage 3 unspecified; D72.829 Elevated white blood cell count, unspecified

== ENCOUNTER → 2024-03-02 | Outpatient (REF) | payer MEDICARE ==
[2024-03-02 18:11] LABS: TOTAL PROTEIN,RANDOM URINE 11.5 MG/DL (0.0-14.0)
[2024-03-02 18:16] LABS: CREATININE,RANDOM URINE 47.4 MG/DL
== END ==
LOC: M LAB REF 16:58
PROVIDERS: ATTEND Internal Medicine Nephrology
DX: N18.31 Chronic kidney disease, stage 3a (principal)